=== PATIENT | female | born 1980 | race Caucasian/White ===

== ENCOUNTER 2022-07-19 13:55 | Outpatient (CLI) | payer BC ==
[~2022-07-19] VITALS: Ht 165.1 cm; Wt 77.0 kg
[2022-07-19 14:17] VITALS: BP 110/77; PULSE 83; TEMP 97.5
[2022-07-19 14:30] VITALS: BP 115/77; PULSE 88
[2022-07-19] MEDS ORDERED: TOPROL XL 25MG25 MG PO (14:34)
[2022-07-19] MEDS ORDERED: COUMADIN 2MG2 MG/TAB PO ×2 (14:35)
[2022-07-19] MEDS ORDERED: LASIX 40MG TABL40 MG PO (14:35)
[2022-07-19] MEDS ORDERED: TIKOSYN0.5 MG PO (14:36)
[2022-07-19] MEDS ORDERED: MAGNESIUM500 MG PO (14:36)
[2022-07-19] MEDS ORDERED: MSM1000 MG PO (14:37)
[2022-07-19] MEDS ORDERED: VITRON-C PO (14:38)
[2022-07-19] MEDS ORDERED: VITAMINC1000TA PO (14:38)
[2022-07-19] MEDS ORDERED: VITAMIND3 5000 PO (14:38)
[2022-07-19 15:00] VITALS: BP 110/70; PULSE 76
[2022-07-19 15:15] VITALS: BP 111/73; PULSE 74
[2022-07-19 15:24] VITALS: BP 103/71; PULSE 89
--- NOTE | 2022-07-19 15:35 | NUR ---
IV DC'd, site wrapped with coban. Pt escorted out to ED entrance, gait remains steady. She tolerated medication and 1 hr obs period without issue.
== END 2022-07-19 15:35 | disposition home or self-care (01) ==
LOC: EUO 13:55 → EDSTATUS 14:00 → EUO 15:35
DX: U07.1 COVID-19 (principal)
CPT/HCPCS: M0222; Q0222